=== PATIENT | female | born 2005 | race Caucasian/White ===

== ENCOUNTER 2024-07-13 06:53 | Emergency (ER) | payer OTHER ==
[2024-07-13] MEDS ORDERED: Dexamethasone 10 MG/ML VIAL ONE (08:00)
[2024-07-13] MEDS ORDERED: Ketorolac Tromethamine 30 MG (1 mL) VIAL ONE (08:00)
[2024-07-13] MEDS ORDERED: Morphine 4 MG/ML VIAL ONE (08:01)
[2024-07-13] MEDS ORDERED: Ondansetron PF 4 MG/2 ML Vial ONE (08:01)
[2024-07-13 08:27] LABS: BHCG - Serum Negative (NEGATIVE); Pregs Control Background? CLEAR/WHITE (CLR/WHITE); Pregs Control Bar Appear? YES (CONTROL BAR)
[2024-07-13 08:32] LABS: ALT (SGPT) 165 U/L (8-55); AST (SGOT) 98 U/L (5-34); Alkaline Phosphatase 131 U/L (40-110); Anion Gap 17 mmol/L (10-20); BUN (Urea Nitrogen) 7 mg/dL (7.0-18.7); Bilirubin, Total 0.5 mg/dL (0.2-1.2); Calc. Creatinine Clearance 0 mL/min (70-130); Calcium 9.2 mg/dL (7.8-10.44); Carbon Dioxide 26 mmol/L (22-29); Chloride 102 mmol/L (98-107); Estimated GFR 112; Globulin 4.2 g/dL (2.4-3.5); Glucose 117 mg/dL (70-105); Lipase 12 U/L (8-78); Protein, Total 8.2 g/dL (6.0-8.3); Sodium 141 mmol/L (136-145)
[2024-07-13 08:36] LABS: Hematocrit 44.2 % (36.0-47.0); Hemoglobin 14.9 g/dL (12.0-16.0); Mean Corpuscular HGB CONC 33.7 g/dL (32.0-36.0); Mean Corpuscular Hemoglobin 29.2 pg (27.0-31.0); Mean Corpuscular Volume 86.7 fL (78.0-98.0); Mean Platelet Volume 9.2 fL (7.4-10.4); Platelet Count 268 10x3/uL (130-400); RBC Distribution Width 12.4 % (11.5-14.5)
[2024-07-13 09:11] LABS: Band 12 % (5-11); Burr Cells SLIGHT = 2-5 cells HPF (0-1); Large Platelets 1.9 % (0-5); Lymphocytes 21 % (21-51); Monocytes 11 % (0-10); Neutrophil 48 % (42-75); Platelet Adequacy Comment Platelets Normal; Reactive Lymphocytes 9 % (0-10)
[2024-07-13] MEDS ORDERED: Morphine 2 MG/ML VIAL ONE (13:00)
[2024-07-13] MEDS ORDERED: Iopamidol-370 76% 500 ML MDV (1 ML CHARGE) ONE (15:18)
== END 2024-07-13 14:10 | disposition short-term general hospital (02) ==
LOC: ERS 06:53
DX: B27.90 Infectious mononucleosis, unspecified without complication (principal); J35.03 Chronic tonsillitis and adenoiditis; R59.0 Localized enlarged lymph nodes
CPT/HCPCS: 70491; 80053; 83690; 84703; 85025; 96374; 96375; 96376; J1100; J1885; J2272; J2405; Q9967